=== PATIENT | male | born 1975 | race Caucasian/White ===

== ENCOUNTER → 2020-11-11 12:49 | Outpatient (BNVA) | payer MEDICAID, SELFPAY | PROVIDERS: PCP Family Medicine; Visit Provider Physician Assistant | DX: M75.41 Impingement syndrome of right shoulder (principal); M75.42 Impingement syndrome of left shoulder | CPT/HCPCS: 20610; 99212; J1040 ==

== ENCOUNTER 2021-09-10 09:58 | Outpatient (REF) | payer MEDICAID, SELFPAY | END 2021-09-10 09:59 | disposition home or self-care (01) | LOC: HO.HOSX 09:58 | PROVIDERS: Visit Provider Physician Assistant | DX: Z13.89 Encounter for screening for other disorder (principal) ==

== ENCOUNTER 2022-01-20 12:39 | Outpatient (REF) | payer MEDICAID, SELFPAY ==
--- NOTE | ~2022-01-20 | CT_ITS ---
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 COMPARISON: None TECHNIQUE: Contiguous axial imaging was performed from the skull base to vertex following the administration of 100 mL of Omnipaque [address] examination was performed using dose optimization techniques as appropriate, variously including the following: *Automated exposure control *Adjustment of mA and/or kV according to patient size (this includes techniques or standardized protocols for targeted exams where dose is matched to indication/reason for exam; i.e. extremities or head) *Use of iterative reconstruction technique DLP: 885 mGy-cm FINDINGS: Brain Volume: Within normal limits. Structural: No malformations. Brain and Meninges: The brain is normal in morphology and attenuation. Orozco-white matter differentiation is maintained. Basal cisterns appear within normal limits. Cavernous sinuses enhance normally and are symmetric. No intracranial mass lesions, abnormal enhancement, space-occupying process, or mass effect. No extra-axial fluid collections. Brainstem appears within normal limits. Ventricles and Subarachnoid Spaces: Ventricular system and subarachnoid spaces are within normal limits without hydrocephalus. Orbital Structures: Visualized orbital soft tissues structures are symmetric and appear within normal limits within the limitations of the study. Bony Structures: 7 mm radiolucency in the right anterior frontal calvarium within the diploic space is noted, which is nonspecific but likely a benign finding. Smaller radial lucencies are seen in the left frontal bone as well which are nonspecific but likely of a benign etiology. Otherwise, the bony structures are intact. The visualized airspaces are unopacified. Air Spaces: Clear. CT/CT head/brain w con IMPRESSION: 1. Normal contrast-enhanced CT of the brain. No mass lesions, abnormal enhancement, space-occupying process, or mass effect are identified. Unremarkable appearance to the basal cisterns, cavernous sinuses and orbits within the limitations of the study. If clinically warranted, MRI of the orbits with contrast may be of additional value for more sensitive assessment. 2. Small radiolucencies in the right and left frontal bones are noted which have a benign appearance.
[2022-01-20] MEDS: iohexoL 350 MG/ML 100 ML INFUS..BTL IV (13:22)
== END 2022-01-20 12:40 | disposition home or self-care (01) ==
LOC: HO.CT 12:39
PROVIDERS: Absent Provider Family Medicine; PCP Family Medicine; Visit Provider Nurse Practitioner Primary Care
DX: H49.12 Fourth [trochlear] nerve palsy, left eye (principal)
CPT/HCPCS: 70460; Q9967

== ENCOUNTER 2022-05-07 07:39 | Outpatient (REF) | payer MEDICAID, SELFPAY ==
--- NOTE | ~2022-05-07 | CT_ITS ---
EXAMINATION: CT SOFT TISSUE NECK WITH CONTRAST CLINICAL INFORMATION: 46-year-old with sialolithiasis. COMPARISON: None. TECHNIQUE: Following the intravenous administration of 60 mL of Omnipaque 350 intravenous contrast, helical imaging was performed in the axial plane with generation of coronal and sagittal reformatted images. This CT examination was performed using dose optimization techniques as appropriate, variously including the following: *Automated exposure control *Adjustment of mA and/or kV according to patient size (this includes techniques or standardized protocols for targeted exams where dose is matched to indication/reason for exam; i.e. extremities or head) *Use of iterative reconstruction technique DLP: 387 mGy-cm FINDINGS: Skull Base: The bony skull base and visualized calvarium appear grossly intact.?Limited assessment of the visualized intracranial and orbital soft tissue structures is unrevealing.?The visualized mastoids, middle ear cavities and sinonasal cavity are clear. There is nasal septal deviation to the left. There is a 7 mm periodontal radiolucency surrounding a left premolar maxillary tooth root. Correlate clinically for periodontal disease. 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 There is a tiny calcified tonsillolith in the right pharyngeal tonsil. Base of the tongue and floor of the mouth structures demonstrate no focal mass or abnormal enhancement. There is slightly asymmetric fatty replacement of the right side of the tongue base just below the oral tongue, the significance of which is uncertain. The parotid glands are normal in morphology and attenuation with no evidence for sialolithiasis or sialoadenitis. No stones are identified within Stensen's duct bilaterally. The submandibular glands show no definite sialolithiasis. There is a 2.5 mm calculus in the proximal left [place]'s duct, consistent with sialodocholithiasis with mild associated sialoectasia just proximal to this. The left submandibular gland shows mild hyperenhancement consistent with sialoadenitis. There are nonenlarged bilateral submandibular space and submental lymph nodes and small, nonenlarged bilateral IJ chain lymph nodes. Nonenlarged level 5A lymph nodes are noted bilaterally. Lingual tonsils, vallecula and epiglottis appear unremarkable. Infrahyoid Neck: The hypopharynx, larynx and thyroid gland appear within normal limits with a normal appearance to the tracheoesophageal grooves. Scattered tiny, normal-sized bilateral IJ chain lymph nodes are noted. Upper Chest: The visualized lung parenchyma is remarkable for a 5 mm densely calcified nodule in the lateral aspect of the left upper lobe, likely a calcified granuloma. There is a 4.5 mm calcified nodule posterior right upper lobe and a 3 mm calcified nodule anterior right upper lobe. Visualized upper mediastinum is grossly unremarkable. Skeletal: Minor spondylosis at C6-C7 with slight lordotic reversal at C4-C5. Otherwise, skeletal structures appear grossly intact. Other Comments: None. CT/CT soft tissue neck w con IMPRESSION: 1. A 2.5 mm calculus in the proximal left Jordan's duct with associated mild proximal sialoectasia and associated sialoadenitis. 2. Asymmetry of fat deposition in the intrinsic tongue muscles, more on the right than on the left of indeterminate significance. Correlate with direct visualization. 3. No lymphadenopathy identified. 4. Multiple calcified nodules in the upper lobes as described above, likely reflecting calcified granulomata. If this patient is not at elevated risk (no history of smoking or underlying malignancy), then no further followup for this is suggested on the basis of the current Fleischner criteria. If the patient is at elevated risk, then a followup CT the chest would be recommended in 12 months.
[2022-05-07] MEDS: iohexoL 350 MG/ML 75 ML INFUS..BTL 60 ML IV (08:40)
== END 2022-05-07 07:40 | disposition home or self-care (01) ==
LOC: HO.CT 07:39
PROVIDERS: PCP Family Medicine; Visit Provider Otolaryngology
DX: K11.5 Sialolithiasis (principal)
CPT/HCPCS: 70491; Q9967

== ENCOUNTER → 2022-07-21 13:40 | Outpatient (BNVA) | payer MEDICAID, SELFPAY | PROVIDERS: PCP Family Medicine; Referring Provider Family Medicine; Visit Provider Nurse Practitioner | DX: Z01.818 Encounter for other preprocedural examination (principal) | CPT/HCPCS: 99202 ==